=== PATIENT | female | born 1935 | race Caucasian/White ===

== ENCOUNTER 2019-11-23 13:36 | Inpatient (IN) | payer OTHER, MEDICAID ==
[~2019-11-23] VITALS: Ht 149.9 cm; Wt 40.0 kg
[2019-11-23] MEDS ORDERED: SODIUM CHLORIDE 0.9% 1,000 ML IV ONE (14:08)
[2019-11-23 14:35] LABS: Basophils # (auto) 0 10 ^3/uL (0-0.2); Basophils % (auto) 0.5 % (0.0-2.0); Eosinophils # (auto) 0.1 10 ^3/uL (0-0.8); Eosinophils % (auto) 0.8 % (0.0-7.0); Hematocrit 39.2 % (36.0-46.0); Hemoglobin 13.2 g/dL (12.2-16.2); Lymphocytes # (auto) 0.9 10 ^3/uL (0.4-5.4); Lymphocytes % (auto) 11.9 % (10.0-50.0); Mean Corpuscular Hgb Conc. 33.7 g/dL (32.0-36.0); Mean Corpuscular Volume 95.1 fL (80.0-100.0); Monocytes # (auto) 0.8 10 ^3/uL (0-1.3); Neutrophils # (auto) 5.6 10 ^3/uL (1.6-8.6); Neutrophils % (auto) 75.8 % (37.0-80.0); Platelet Count (auto) 159 10^3/uL (140-450); Red Blood Cells 4.12 10^6/uL (4.0-5.20); Red Cell Distribution Width 14.1 % (11.8-14.3); White Blood Cell 7.4 10^3/uL (4.4-10.8)
[2019-11-23 14:54] LABS: Albumin 3.3 g/dL (3.4-5.0); Anion Gap 2 (5-15); Blood Alcohol < 3.0 mg/dL (0-5); Blood Urea Nitrogen 12 mg/dL (7-18); Carbon Dioxide 33 mmol/L (21-32); Chloride 103 mmol/L (98-107); Glucose 124 mg/dL (74-106); Potassium 3.4 mmol/L (3.5-5.1); Sodium 138 mmol/L (136-145)
[2019-11-23 14:57] LABS: Alanine Aminotransferase 17 U/L (13-56); Alkaline Phosphatase 133 U/L (45-117); Aspartate Aminotransferase 9 U/L (15-37); Bilirubin, Total 0.3 mg/dL (0.2-1.0); Calcium 8.8 mg/dL (8.5-10.1); GFR African American 152 mL/min; GFR Non-African American 125 mL/min; Total Protein 7.1 g/dL (6.4-8.2)
[2019-11-23 16:45] LABS: Urine Bacteria NONE SEEN /hpf (None Seen); Urine Blood 2+ /uL (Negative); Urine Mucus FEW (None Seen); Urine Specific Gravity 1.013 (1.001-1.035); Urine WBC 3 /hpf (0 - 5)
[2019-11-23] MEDS ORDERED: ACETAMINOPHEN 500 MG TAB PO PRN (19:15)
[2019-11-23] MEDS ORDERED: NITROGLYCERIN 0.4 MG SL TAB SL PRN ×2 (19:15)
[2019-11-23] MEDS ORDERED: cefTRIAXone 1GM/50ML D5W 50 ML IV ONE (19:15)
[2019-11-23] MEDS ORDERED: MORPHINE SULF INJ 2 MG/ML SYRINGE 1ML IV PRN ×2 (19:15)
[2019-11-23] MEDS ORDERED: traMADol HCL 50 MG TAB PO PRN (19:15)
[2019-11-23] MEDS ORDERED: LORazepam 2MG/ML-1ML VIAL IV PRN (19:15)
[2019-11-23] MEDS ORDERED: ONDANSETRON HCL 4 MG/2 ML VIAL IV PRN (19:15)
[2019-11-23] MEDS ORDERED: LACTULOSE 20Gm/30ML SOLN PO PRN (19:15)
[2019-11-23] MEDS ORDERED: POTASSIUM EFFERVESENT TAB 25 MEQ PO ONE (19:30)
[2019-11-23 20:11] VITALS: BP 172/80
[2019-11-23] MEDS ORDERED: LABETALOL HCL 5 MG/ML 4ML SYRINGE IV ONE (20:45)
[2019-11-23] MEDS: CLINDAMYCIN 600MG IV 50 ML IV SCH (21:28)
[2019-11-23] MEDS: carBAMazepine 200 MG TAB PO SCH (21:29)
[2019-11-23] MEDS: FAMOTIDINE 20 MG TAB PO SCH (21:29)
[2019-11-23] MEDS ORDERED: SIMV80TA73 PO (21:57)
[2019-11-23] MEDS ORDERED: RIVA20TA PO (21:57)
[2019-11-23] MEDS ORDERED: CARB200T4 PO (21:58)
[2019-11-23] MEDS ORDERED: RANI-226 PO (21:58)
[2019-11-23] MEDS ORDERED: PHE100C PO (21:59)
[2019-11-23 22:00] VITALS: BP 172/80
[2019-11-23] MEDS ORDERED: PHENYTOIN SODIUM 100 MG CAP PO SCH (22:00)
[2019-11-23] MEDS ORDERED: ATORVASTATIN 20 MG TAB PO SCH (22:00)
[2019-11-23] MEDS ORDERED: PNEUMOCOCCAL VACC POLYS 25 MCG/0.5 ML VIAL IM ONE (22:15)
[2019-11-23] MEDS ORDERED: INFLUENZA QUAD 2019-2020 0.5ml SYRG IM ONE (22:15)
[2019-11-23 22:50] VITALS: BP 149/82
[2019-11-24 05:00] VITALS: BP 159/82
[2019-11-24] MEDS: CLINDAMYCIN 600MG IV 50 ML IV SCH ×2 (05:50→14:00)
[2019-11-24 09:00] VITALS: BP 109/73
[2019-11-24] MEDS ORDERED: cefTRIAXone 1GM/50ML D5W 50 ML IV SCH (09:00)
[2019-11-24] MEDS ORDERED: ENOXAPARIN SOD 40 MG/0.4 ML SYRINGE SC SCH (10:00)
[2019-11-24] MEDS: FAMOTIDINE 20 MG TAB PO SCH (10:29)
[2019-11-24] MEDS: carBAMazepine 200 MG TAB PO SCH (10:29)
[2019-11-24] MEDS ORDERED: RIVAROXABAN 20 MG TAB PO SCH (11:00)
[2019-11-24 13:00] VITALS: BP 136/76
[2019-11-24 14:24] VITALS: BP 109/73
== END 2019-11-24 16:15 | disposition home or self-care (01) | DRG 101 ==
LOC: EDBD 13:36 → ER 13:36 → TELE-WESTW 13:37
PROVIDERS: ADMIT Internal Medicine; ATTEND Internal Medicine
DX: R56.9 Unspecified convulsions (principal); N39.0 Urinary tract infection, site not specified; L03.032 Cellulitis of left toe; Z66 Do not resuscitate; Z51.5 Encounter for palliative care; R31.29 Other microscopic hematuria; Z79.01 Long term (current) use of anticoagulants; G80.9 Cerebral palsy, unspecified
CPT/HCPCS: 36415; 51702; 70450; 71045; 80053; 80320; 81001; 85025; 85652; 87086; 93005; 96361; 96374; G0378; J0696; J3490